=== PATIENT | male | born 1975 | race African-American/Black ===

== ENCOUNTER 2017-03-25 09:02 | Day surgery (SDC) | payer BC ==
--- NOTE | 2017-03-24 13:40 | Pre-Procedure Note/Attestation ---
Pre-Procedure Note/Attestation Complete Prior to Procedure Planned Procedure: right Procedure Narrative: rt knee scope, medial and lateral meniscectomy and chondroplasty Indications for Procedure Pre-Operative Diagnosis: rt knee medial and lateral meniscus tear Attestation I attest that I discussed the nature of the procedure; its benefits; risks and complications; and alternatives (and the risks and benefits of such alternatives ), prior to the procedure, with the patient (or the patient's legal appliance service representative). I attest that, if there was a reasonable possibility of needing a blood transfusion, the patient (or the patient's legal appliance service representative) was given the [facility] standardized written summary, pursuant to the [employer] [place] Blood Safety Act ([place] Health and Safety Code # 1645, as amended). I attest that I re-evaluated the patient just prior to the surgery and that there has been no change in the patient's H&P, except as documented below: NONE SUMMER GONZALEZ Mar 24, 2017 13:40
[~2017-03-25] VITALS: Ht 180.3 cm; Wt 104.3 kg
[2017-03-25] VITALS (13 sets, daily range): BP systolic 113–144; BP diastolic 52–86
[~2017-03-25 09:02] MED LIST: NKM; ceFAZolin 1gm in D5W 55ml IVP ONE; celeBREX 200mg Cap **SURGERY PATIENTS ONLY ORAL ONE; oxyCONTIN 20mg tab ORAL ONE
[2017-03-25] MEDS ORDERED: celeBREX 200mg Cap **SURGERY PATIENTS ONLY ORAL ONE (10:01)
[2017-03-25] MEDS ORDERED: Bupivacaine w/Epi 0.5% 30ml Vial INJ ONE (10:43)
[2017-03-25] MEDS ORDERED: Ropivacaine 5mg/ml Vial 20ml INJ ONE (10:43)
[2017-03-25] MEDS ORDERED: Tylenol #3 tab (300mg/30mg) ORAL PRN (10:45)
[2017-03-25] MEDS ORDERED: D5 1/2NS 1,000 ML IV SCH (10:45)
[2017-03-25] MEDS ORDERED: Norco 5mg/325mg tab ORAL PRN ×2 (10:45→11:00)
[2017-03-25] MEDS ORDERED: HYDROmorphone 1mg/ml Carpuject SUBQ PRN (10:45)
[2017-03-25] MEDS ORDERED: LR 1000ml 1,000 ML IVLG SCH (10:49)
--- NOTE | 2017-03-25 10:52 | Anethesia Preoperative Eval ---
Anesthesia Pre-op PMH/ROS General Date of Evaluation: Mar 25, 2017 Time of Evaluation: 10:49 Anesthesiologist: Luma ASA Score: ASA 2 Mallampati Score Class I : Soft palate, uvula, fauces, pillars visible Class II: Soft palate, uvula, fauces visible Class III: Soft palate, base of uvula visible Class IV: Only hard plate visible Mallampati Classification: Class II Surgeon: Joe Diagnosis: R Knee Pain Surgical Procedure: R Knee Arthroscopy, Lat and Med Menisectomy and Chondroplasty Anesthesia History: none Family History: no anesthesia problems Allergies: Coded Allergies: No Known Allergies (Unverified , 03/20/17) Medications: see eMAR Past Medical History Gastrointestinal/Genitourinary: Reports: GERD Other: obesity - BMI 32 Anesthesia Pre-op Phys. Exam Physician Exam Last Vital Signs Date Time Temp Pulse Resp B/P (MAP) Pulse Ox O2 Delivery O2 Flow Rate FiO2 03/25/17 09:46 98.4 82 20 144/83 98 Room Air Constitutional: NAD Neurologic: CN 2-12 intact Cardiovascular: RRR Respiratory: CTA Gastrointestinal: S/NT/ND Airway Exam Mallampati Score: Class II MO: full ROM: full Teeth: intact Anesthesia Pre-op A/P Risk Assessment & Plan Assessment: ASA 2 Plan: GA, BIS Status Change Before Surgery: No Pre-Antibiotics Dru Grams Ancef IV Given Within 1 Hr of Incision: Yes Time Given: 11:06 Isaiah Ge MD Mar 25, 2017 10:52
[2017-03-25] MEDS ORDERED: Lidocaine 1% MPF 10mg/ml 5ml ONE (11:00)
[2017-03-25] MEDS ORDERED: Dexamethasone 4mg/ml vial ONE (11:00)
[2017-03-25] MEDS ORDERED: Ketorolac 30mg Inj IV PRN (11:00)
[2017-03-25] MEDS ORDERED: Norco 7.5mg/325mg tab ORAL PRN (11:00)
[2017-03-25] MEDS ORDERED: Meperidine 25mg/0.5ml Inj (FOR RIGORS ONLY) IV PRN (11:00)
[2017-03-25] MEDS ORDERED: Metoclopramide 10mg/2ml Inj IVP PRN (11:00)
[2017-03-25] MEDS ORDERED: NS Irrig 4000ml IRRIG ONE ×3 (11:00→11:25)
[2017-03-25] MEDS ORDERED: fentaNYL 100 mcg/2 mL IV PRN (11:00)
[2017-03-25] MEDS ORDERED: DiphenhydrAMINE 50mg/ml Inj IVP PRN (11:00)
[2017-03-25] MEDS ORDERED: Hydromorphone 0.5mg/0.5ml inj IVP PRN (11:00)
[2017-03-25] MEDS ORDERED: fentaNYL 100 mcg/2 mL IV ONE (11:00)
[2017-03-25] MEDS ORDERED: LORazepam Inj 2mg/ml 1ml IV PRN (11:00)
[2017-03-25] MEDS ORDERED: oxyCODONE HCL/Acetaminophen 5/325mg ORAL PRN (11:00)
[2017-03-25] MEDS ORDERED: Ketorolac 60mg Inj IV PRN (11:00)
[2017-03-25] MEDS ORDERED: Midazolam 2mg/2ml Inj IVP PRN (11:00)
[2017-03-25] MEDS ORDERED: Propofol 10mg/ml 20ml IV ONE (11:00)
[2017-03-25] MEDS ORDERED: Midazolam 2mg/2ml Inj ONE (11:00)
[2017-03-25] MEDS ORDERED: Atropine Inj 1mg/10ml Syr IV PRN (11:00)
--- NOTE | 2017-03-25 11:14 | Immediate Post-Op Evaluation ---
Immediate Post-Op Evalulation Immediate Post-Op Evalulation Procedure: R Knee Arthroscopy, Lat and Med Menisectomy and Chondroplasty Date of Evaluation: Mar 25, 2017 Time of Evaluation: 11:59 IV Fluids: 600 LR Blood Products: 0 Estimated Blood Loss: 10 Urinary Output: 0 Blood Pressure Systolic: 117 Blood Pressure Diastolic: 86 Pulse Rate: 77 Respiratory Rate: 16 O2 Sat by Pulse Oximetry: 98 Temperature (Fahrenheit): 97.6 Pain Score (1-10): 2 Nausea: No Vomiting: No Complications 0 Patient Status: awake, reacts, patent, extubated, none Hydration Status: adequate Dru Grams Ancef IV Given Within 1 Hr of Incision: Yes Time Given: 11:06 Isaiah Ge MD Mar 25, 2017 11:14
--- NOTE | 2017-03-25 11:15 | 48 Hour Post Anesthesia Eval ---
Post Anesthesia Evaluation Procedure: R Knee Arthroscopy, Lat and Med Menisectomy and Chondroplasty Date of Evaluation: Mar 25, 2017 Time of Evaluation: 14:12 Blood Pressure Systolic: 144 0: 76 Pulse Rate: 78 Respiratory Rate: 18 Temperature (Fahrenheit): 98.2 O2 Sat by Pulse Oximetry: 97 Airway: patent Nausea: No Vomiting: No Pain Intensity: 2 Hydration Status: adequate Cardiopulmonary Status: Stable Mental Status/LOC: patient returned to baseline Follow-up Care/Observations: 0 Post-Anesthesia Complications: 0 Follow-up care needed: ready to discharge Isaiah Ge MD Mar 25, 2017 11:15
--- NOTE | 2017-03-25 11:42 | Brief Operative Note ---
Immediate Post Operative Note Operative Note Chief Complaint: rt knee pain Pre-op Diagnosis: rt knee later and medial meniscus tear Procedure: rt knee scope, medial and lateral meniscectomy Post-op Diagnosis: same as pre-op Findings: consistent w/pre-op dx studies Surgeon: md jaron Appeals Assistant: tray coffey Anesthesiologist: md garrett Anesthesia: general Specimen: none Complications: none Condition: stable Fluids: NS Estimated Blood Loss: minimal Drains: none Implant(s) used?: No DAMON COFFEY Mar 25, 2017 11:42
--- NOTE | 2017-03-25 23:45 | Operative Note - Dictated ---
DATE OF OPERATION: 03/25/2017 PREOPERATIVE DIAGNOSIS: Right knee medial and lateral meniscus tearing. POSTOPERATIVE DIAGNOSES: 1. Right knee complex tear of the body of the lateral meniscus involving 25% of the undersurface of the body of the lateral meniscus. 2. Right knee complex tear of the posterior horn and body of the medial meniscus involving 35% of posterior horn and body of the medial meniscus. 3. 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 4. Right knee loose fragment in the lateral gutter measuring 7 to 10 mm of chondral free-floating cartilage. PROCEDURE: 1. Right knee arthroscopy and extensive intra-articular shaving. 2. Right knee resection of loose chondral fragment from the lateral gutter measuring 7 to 10 mm. 3. Right knee partial lateral meniscectomy involving 25% of the body of the lateral meniscus. 4. Right knee partial medial meniscectomy involving 35% of the posterior horn and body of the medial meniscus. 5. Right knee medial femoral condyloplasty. SURGEON: Fredi Diaz M.D. CLIENT SERVER DEVELOPER: Ruth Sweeney PA-C. Line Supervisor was present during the actual operative portion of the case and was important and essential part of the operation. During the operation, the market research assistant held and operated the arthroscopic camera for visualization, assisted by manipulating the leg to help with visualization, and helped with essential parts of the repair process as necessary such as operating surgical instruments under surgeon supervision, suture management, and wound closures. ANESTHESIOLOGIST: Isaiah Ge M.D. ANESTHESIA: General LMA anesthesia. TOURNIQUET TIME: 25 minutes. EBL: Minimal. COMPLICATIONS: None. SURGICAL INDICATION: Patient is a 41-year-old male, who sustained the above injury to his knee. The patient was treated non-operative initially, but this did not alleviate the patients symptoms. Therefore, after discussing all non-surgical and surgical options, and discussing all foreseeable risk and benefits of surgery, the patient opted for surgical treatment as described above. PATIENT POSITIONING: Patient was brought to the operating room table and placed supine. All pressure points were well padded. General Anesthesia was induced and a well padded tourniquet was placed on the thigh. The lateral post was placed and positioned to allow for opening of the medial compartment of the knee without placing pressure over the fibular head. Patients entire leg was prepped and draped in the usual sterile fashion. Time out was performed and preop abx was given and after exsanguinating the lower extremity, the tourniquet was inflated to 275 mmHg. EXAMINATION OF THE KNEE UNDER ANESTHESIA: Before prepping and draping the knee and while the patient was relaxed under general anesthesia, the knee was examined for ROM, and anterior and posterior, medial and lateral, posterolateral, and posteromedial instability. Pivot shift testing was performed. There was no evidence of loss of motion or instability and the pivot shift testing was negative. PORTAL PLACEMENT: The lateral portal was placed with the knee flexed to 90 degrees at the level of inferior border of the patella in line with the lateral border of the patella. A cm skin incision was made with an eleven blade, and using a blunt obturator, the capsule was gently penetrated. Sterile saline solution was then infused inside the knee with the aid of a pump set at 35 mm mercury pressure. Under direct visualization, placement of the medial portal was preliminary judged using a spinal needle, and it was subsequently established using the same technique as the lateral portal. Care was given not to injure the cutaneous branches of the medial Saphenous nerve or the subcutaneous veins. DIAGNOSTIC ARTHROSCOPY: The suprapatellar patellar pouch was visualized. There was no evidence of scar tissue or loose fragments. The medial and lateral patellar facets and trochlear groove articular cartilage was visualized. These structures were intact and were devoid of any articular cartilage damage. The medial plica shelf and the corresponding medial femoral condyle articular cartilage were visualized. There was no significantly thickening of the medial plica shelf and there were no kissing ? lesion over the medial femoral condyle. The lateral gutter and the posterolateral corner of the knee were visualized. There was a loose fragment in the lateral gutter measuring 7 to 10 mm. This was most likely a piece of cartilage that had flaked off and was floating around. At this point, the knee was placed in the figure of four position and the lateral compartment was entered. The lateral femoral condyle, lateral tibial plateau, and the anterior, body, and the posterior horn of the lateral meniscus were visualized and probed. The articular surfaces were intact and devoid of articular cartilage damage. There was a complex tear of the body of the lateral meniscus involving 25% of the undersurface of the lateral meniscus. The knee was then placed at 90 degree and the ACL and PCL were visualized and probed. The ACL was completely intact on visualization and probing, and it had excellent tension. The PCL was completely intact on visualization and probing and it had excellent tension. The medial compartment was then entered and the medial femoral condyle, medial tibial plateau, and the anterior, body, and the posterior horn of the medial meniscus were visualized and probed. There was a chondral damage over the medial femoral condyle measuring 1 x 1.5 cm in the weightbearing zone. This corresponded to the area of medial meniscus tear. There were some unstable chondral flaps. There was a complex tear of the posterior horn and body of the medial meniscus involving 35% of the posterior horn and body of the medial meniscus. The medial gutter was visualized. There was no evidence of defect or loose fragments. The scope was then brought back to the patella femoral compartment. OPERATIVE ARTHROSCOPY: At this point, all loose debris and fragments were removed with the use of suction motorized shaver. Specific attention was given to assure all visible loose fragments were irrigated out of the knee joint with pump inflow and cannula outflow system. The loose fragments were identified and visualized. Using combination of the shaver, suction, and graspers, these loose fragments were removed. These loose fragments measured approximately 7 to 10 mm. All debris left behind was removed with combination of joyce and graspers. At this point, attention was given to the lateral meniscus. Using combination of baskets and joyce, the torn portion of the lateral meniscus was removed. Attention was given to remove all displaced and unstable portion of the lateral meniscus while maintaining as much of the functional portion of the meniscus as possible. Approximately, 25% of the body of the lateral meniscus was removed in this fashion. The transition between the meniscectomy portion and intact portion of the meniscus was smoothed out with combination of small baskets and joyce. Excellent transition zone was obtained in this fashion. At this point, attention was given to the medial meniscus. Using combination of baskets and joyce, the torn portion of the medial meniscus was removed. Attention was given to remove all displaced and unstable portion of the medial meniscus while maintaining as much of the functional portion of the meniscus as possible. Approximately, 35% of the posterior horn and body of the medial meniscus was removed in this fashion. The transition between the meniscectomy portion and intact portion of the meniscus was smoothed out with combination of small baskets and joyce. Excellent transition zone was obtained in this fashion. Care was given to the area of cartilage damage in the medial compartment. The frayed and loose fragments of articular cartilage were debrided using a motorized shaver. Suction was used to pull in the loose fragments and flaps of the cartilage and to minimize damage to the intact and well attached portion of the cartilage. This allowed for smooth surfaces for the articular cartilage. CONDITION AT DISCHARGE FROM OPERATING ROOM: The knee was irrigated with copious amount of normal saline at the end of the procedure. The scope was removed and the water was drained. The skin edges were re-approximated and sterile dressing was applied. All lap count and instrument counts were correct. Patient tolerated the procedure well without complications and was taken to the recovery room in stable conditions. Fredi Diaz M.D. DR: TK JOB#: [id number] CC: [id number]
== END 2017-03-25 14:30 | disposition home or self-care (01) ==
LOC: SUR 09:02
DX: S83.281A Other tear of lateral meniscus, current injury, right knee, initial encounter (principal); S83.241A Other tear of medial meniscus, current injury, right knee, initial encounter; X58.XXXA Exposure to other specified factors, initial encounter; Y92.89 Other specified places as the place of occurrence of the external cause; Y99.8 Other external cause status; M94.261 Chondromalacia, right knee; M23.41 Loose body in knee, right knee; R35.1 Nocturia; E66.9 Obesity, unspecified; Z68.32 Body mass index [BMI] 32.0-32.9, adult; K21.9 Gastro-esophageal reflux disease without esophagitis
CPT/HCPCS: 29880; 97161; J0690; J1100; J2250; J2405; J2704; J2795; J3010; 94003; 94150